=== PATIENT | male | born 1995 | race Caucasian/White ===

== ENCOUNTER 2023-06-11 23:14 | Emergency (ER) | payer SELFPAY ==
[~2023-06-11] VITALS: Ht 177.8 cm; Wt 63.5 kg
[2023-06-11 23:30] VITALS: BP_SYST 140; PULSE 109; RESP 20; TEMP 98.1; O2SAT 99
[2023-06-12] MEDS ORDERED: LORazepam 2 MG/ML VIAL IVP ONE
[2023-06-12] MEDS ORDERED: NACL 0.9% 1,000 ML IV ONE
[2023-06-12 00:11] LABS: BASOPHILS % (AUTO) 0.4 % (0.0-2.0); EOSINOPHILS % (AUTO) 0.2 % (0.0-4.0); HEMATOCRIT 39.8 % (36-54); HEMOGLOBIN 13.6 g/dL (14.0-18.0); LYMPHOCYTES # (AUTO) 2.5 K/uL (1.0-5.5); LYMPHOCYTES % (AUTO) 24.2 % (20.5-51.5); MEAN CORPUSCULAR HEMOGLOBIN 34 pg (27-31); MEAN CORPUSCULAR HGB CONC 34 % (32-36); MEAN CORPUSCULAR VOLUME 99 fL (79.0-98.0); MONOCYTES # (AUTO) 0.6 K/uL (0.0-1.0); MONOCYTES % (AUTO) 6.2 % (1.7-9.3); NEUTROPHILS # (AUTO) 7.1 K/uL (1.8-7.7); PLATELET COUNT (AUTO) 406 K/uL (130-430); RED BLOOD CELL COUNT(AUTO) 4.03 MIL/uL (4.2-6.2); RED CELL DISTRIBUTION WIDTH 12.8 % (9.0-15.0); WHITE BLOOD COUNT (AUTO) 10.3 K/uL (4.8-10.8)
[2023-06-12 00:43] LABS: ALBUMIN 3.6 g/dL (3.4-4.8); CALCIUM 9.1 mg/dL (8.4-11.0); CREATININE 0.76 mg/dL (0.55-1.30); TOTAL BILIRUBIN 0.5 mg/dL (0.0-1.0); TOTAL PROTEIN, SERUM 7.7 g/dL (6.4-8.3)
[2023-06-12 00:48] LABS: POTASSIUM 2.5 mmol/L (3.5-5.1)
[2023-06-12] MEDS ORDERED: POTASSIUM CHLORIDE 20 MEQ/PKT PACKET PO ONE (01:30)
[2023-06-12 02:05] VITALS: BP_SYST 140; PULSE 109; RESP 20; TEMP 98.1; O2SAT 99
== END 2023-06-12 02:05 | disposition home or self-care (01) ==
LOC: SED 23:14
DX: R00.2 Palpitations (principal); R05.9 Cough, unspecified; R09.81 Nasal congestion; Z79.899 Other long term (current) drug therapy
CPT/HCPCS: 99284; 80053; 85025; 36415; 93005; 96374; 96361; G0482; J2060; J7030

== ENCOUNTER 2024-06-10 16:51 | Emergency (ER) | payer BC ==
[~2024-06-10] VITALS: Ht 177.8 cm; Wt 72.6 kg
[2024-06-10 18:09] VITALS: BP_SYST 128; PULSE 96; RESP 18; TEMP 97.8; O2SAT 96
[2024-06-10 19:37] LABS: BASOPHILS % (AUTO) 0.4 % (0.0-2.0); HEMATOCRIT 42.9 % (36-54); HEMOGLOBIN 15.2 g/dL (14.0-18.0); LYMPHOCYTES % (AUTO) 28.1 % (20.5-51.5); MEAN CORPUSCULAR HEMOGLOBIN 33 pg (27-31); MEAN CORPUSCULAR HGB CONC 35 % (32-36); MEAN CORPUSCULAR VOLUME 92 fL (79.0-98.0); MONOCYTES # (AUTO) 0.4 K/uL (0.0-1.0); MONOCYTES % (AUTO) 5.7 % (1.7-9.3); NEUTROPHILS # (AUTO) 4.7 K/uL (1.8-7.7); NEUTROPHILS % (AUTO) 65.8 % (40.0-70.0); PLATELET COUNT (AUTO) 365 K/uL (130-430); RED BLOOD CELL COUNT(AUTO) 4.65 MIL/uL (4.2-6.2); RED CELL DISTRIBUTION WIDTH 12.8 % (9.0-15.0); WHITE BLOOD COUNT (AUTO) 7.2 K/uL (4.8-10.8)
[2024-06-10 19:57] LABS: ALBUMIN 4.3 g/dL (3.4-4.8); CALCIUM 8.7 mg/dL (8.4-11.0); CREATININE 0.95 mg/dL (0.55-1.30); POTASSIUM 3.3 mmol/L (3.5-5.1); TOTAL BILIRUBIN 0.8 mg/dL (0.0-1.0); TOTAL PROTEIN, SERUM 7.7 g/dL (6.4-8.3)
[2024-06-10 19:58] LABS: BILIRUBIN,DIRECT 0.1 mg/dL (0.0-0.3)
[2024-06-10] MEDS: NACL 0.9% 1,000 ML IV ONE (20:17)
[2024-06-10] MEDS: LORazepam 2 MG/ML VIAL IVP ONE (20:18)
[2024-06-10 22:30] VITALS: BP_SYST 136; PULSE 123; RESP 23; TEMP 97.9; O2SAT 99
== END 2024-06-10 22:30 | disposition home or self-care (01) ==
LOC: SED 16:51
DX: F10.129 Alcohol abuse with intoxication, unspecified (principal); S62.394D Other fracture of fourth metacarpal bone, right hand, subsequent encounter for fracture with routine healing; S62.396D Other fracture of fifth metacarpal bone, right hand, subsequent encounter for fracture with routine healing; W22.8XXD Striking against or struck by other objects, subsequent encounter; Y90.8 Blood alcohol level of 240 mg/100 ml or more
CPT/HCPCS: 99284; 96374; 96361; 80076; 80048; 83690; 85025; 36415; 73120; G0482; J2060; J7030